=== PATIENT | female | born 1980 | race Caucasian/White ===

== ENCOUNTER 2022-04-27 09:21 | Outpatient (CLI) | payer OTHER, SELFPAY ==
--- NOTE | 2022-04-27 09:30 | ECG_ITS ---
Measurements Intervals [place] Rate: 78 P: 18 DC: 136 QRS: 12 QRSD: 97 T: 15 QT: 378 QTc: 432 Interpretive Statements SINUS RHYTHM BASELINE ARTIFACT POSSIBLE RIGHT VENTRICULAR CONDUCTION DELAY [RSR (QR) IN V1/V2] BORDERLINE ECG NO PREVIOUS ECG AVAILABLE FOR COMPARISON Electronically Signed On 04-27-2022 14:13:57 CDT by Josafat Murdock M.D.
== END 2022-04-27 09:22 | disposition home or self-care (01) ==
PROVIDERS: Visit Provider Surgery Plastic and Reconstructive Surgery
DX: Z01.818 Encounter for other preprocedural examination (principal); I10 Essential (primary) hypertension
CPT/HCPCS: 93005

== ENCOUNTER 2022-04-28 00:11 | Day surgery (SDC) | payer OTHER, SELFPAY ==
[2022-04-21 09:32] VITALS: BMI 28.3
--- NOTE | 2022-04-21 09:40 | PC.NURSE ---
Report to the Outpatient Waiting Room, entrance under the green pavilion located off [facility], at time on date . OR Time: . - You and your visitor will be asked a series of questions to screen for COVID 19 for your protection. - Only one visitor is allowed at this time. - The patient visitor is requested to leave or wait in car when not with patient. - A mask is required within the hospital. Patients may have clear liquids (water, carbonated beverages, clear teas, apple juice) until 3 hours prior to surgery with a maximum of 20 ounces. - No food from midnight until time of surgery - Infants may have breast milk until 4 hours before surgery, infant formula 6 hours prior to surgery. - Children will be allowed to drink immediately following surgery. If applicable, please bring a bottle or sippy cup to assist with drinking. Juice, water, soda, and popsicles are readily available. For infants on formula, please bring formula the day of surgery. Pacifiers are allowed. Take the following medications with a SIP of water the morning of surgery: Medications to discontinue per physician Date to take last dose Please no make-up, nail khmer, hairspray, perfume, deodorant, or body powder the day of surgery. No jewelry (including any body piercings) or valuables the day of surgery, leave them at home. Please take a shower or bath the night before, or the morning of, surgery with an antibacterial soap. Wear comfortable, loose fitting clothing. Children are encouraged to wear pajamas. - Jewelry must be removed prior to entering the operating room. Rings and piercings that are not removed may be cut off. - The hospital will not accept responsibility for valuables. - Please leave all valuables, including medications, at home the day of surgery. If you are going home after surgery, a licensed test driver must drive you home. - NO public transportation without another adult. - We recommend that an adult stay with you for 24 hours following discharge. - We also recommend that you do not drive, make important decision, drink alcoholic beverages, or take any drugs that were not prescribed by your health care provider for at least 24 hours after your discharge time. For Pediatric surgeries, we recommend two adults accompany the child home (only one inside the building at this time). Follow any additional instructions given to you from your surgeon. If you or anyone in your household have experienced Covid symptoms in the past week, please notify your surgeon or the nurse liaison at the phone number below for possible testing. Telephone instructions given to and asked if any additional questions and then verbalized understanding. Patient advised to call surgeon office or pre surgery nurse liaison [phone] if any additional questions.
--- NOTE | 2022-04-21 09:41 | PC.NURSE ---
Report to the Outpatient Waiting Room, entrance under the green pavilion located off [facility], at time _0630_ on date _[id number]_. OR Time: _0830_. - You and your visitor will be asked a series of questions to screen for COVID 19 for your protection. - Only one visitor is allowed at this time. - The patient visitor is requested to leave or wait in car when not with patient. - A mask is required within the hospital. Patients may have clear liquids (water, carbonated beverages, clear teas, apple juice) until 3 hours prior to surgery with a maximum of 20 ounces. - No food from midnight until time of surgery Take the following medications with a SIP of water the morning of surgery: ____Metoprolol Medications to discontinue per physician Date to take last dose Please no make-up, nail malay, hairspray, perfume, deodorant, or body powder the day of surgery. No jewelry (including any body piercings) or valuables the day of surgery, leave them at home. Please take a shower or bath the night before, or the morning of, surgery with an antibacterial soap. Wear comfortable, loose fitting clothing. - Jewelry must be removed prior to entering the operating room. Rings and piercings that are not removed may be cut off. - The hospital will not accept responsibility for valuables. - Please leave all valuables, including medications, at home the day of surgery. If you are going home after surgery, a licensed intermodal truck driver must drive you home. - NO public transportation without another adult. - We recommend that an adult stay with you for 24 hours following discharge. - We also recommend that you do not drive, make important decision, drink alcoholic beverages, or take any drugs that were not prescribed by your health care provider for at least 24 hours after your discharge time. Follow any additional instructions given to you from your surgeon. If you or anyone in your household have experienced Covid symptoms in the past week, please notify your surgeon or the nurse liaison at the phone number below for possible testing. Telephone instructions given to _Patient___and asked if any additional questions and then verbalized understanding. Patient advised to call surgeon office or pre surgery nurse liaison [phone] if any additional questions.
--- NOTE | 2022-04-27 13:25 | WPDANESEPPF ---
Anes - Initial Pre Proc Eval Procedure: Operation Date: 04/28/22 08:30 Proposed Procedures p Abdominoplasty - Mendez Soto MD s Abdominal Liposuction - Mendez Soto MD Date/Time: 04/27/22 13:25 Surgeon: Mendez Soto MD Pre Op Diagnosis: Skin Laxity Patient Data Age: 41 Gender: F Height: 1.63 m Weight: 75 kg Allergies Allergy/AdvReac Type Severity Reaction Status Date / Time No Known Allergies Allergy Unverified 04/21/22 09:29 Home Medications Medication Instructions Recorded Confirmed Type cetirizine 10 mg PO DAILY 04/10/22 04/21/22 History losartan PO 04/10/22 History montelukast 10 mg PO QAM 04/10/22 04/21/22 History docusate sodium 100 mg capsule 100 mg PO DAILY #14 caps 04/16/22 Rx (Colace) ondansetron 4 mg disintegrating 4 mg PO Q8H #21 tabs 04/16/22 Rx tablet carisoprodol 350 mg tablet (Soma) 350 mg PO TID PRN muscle pain #21 04/17/22 04/17/22 Rx tabs diazepam 5 mg tablet (Valium) 5 mg PO TID PRN anxiety #7 tabs 04/17/22 04/17/22 Rx oxycodone-acetaminophen 5 mg-325 1 tablet PO Q6H PRN pain #30 tabs 04/17/22 04/17/22 Rx mg tablet (Percocet) lorazepam 0.5 mg tablet 0.5 mg PO TID PRN Anxiety 04/21/22 04/21/22 History metoprolol tartrate 25 mg tablet 25 mg PO DAILY 04/21/22 04/21/22 History pantoprazole 40 mg tablet,delayed 40 mg PO QAM 04/21/22 04/21/22 History release sertraline 25 mg tablet 25 mg PO QAM 04/21/22 04/21/22 History Patient hx anesthesia problems: post op nausea/vomiting Family hx anesthesia problems: none Results Review: All pre-operative results and documents have been reviewed as part of the pre-operative evaluation. [facility] Past Medical History Medical History (Updated 04/27/22 @ 13:27 by Carlos Adams DO) Anxiety Asthma Hypertension PONV (postoperative nausea and vomiting) Surgical History Surgical History (Updated 04/27/22 @ 13:27 by Carlos Adams DO) History of cholecystectomy Family History Family History Father Acute myocardial infarction Social History Social History Smoking status: Never smoker Alcohol intake: current Living arrangements: with family Spiritual care concerns: No Anes - Eval Final PreProcedure Day of Procedure 04/27/22 13:25 Patient weight: overweight Heart: regular rate and rhythm Lungs: clear to auscultation Airway: Mallampati scale class II Neurological: alert and oriented Last oral intake: >/= 8 hours ASA classification: II Emergent: no Anesthetic plan: proceed Anesthesia type and monitoring: general ETT and standard monitoring Results Review: All pre-operative results and documents have been reviewed as part of the pre-operative evaluation. Informed Consent: The patient's anesthetic plan and its attendant risks and benefits were discussed with the patient/family/POA. Questions were solicited and answers provided to the satisfaction of the patient/family/POA.
[2022-04-28] VITALS (13 sets, daily range): BP systolic 104–130; BP diastolic 59–78; PULSE 87–112; RESP 15–19; TEMP 36.1–36.9; O2SAT 97–100
--- NOTE | 2022-04-28 06:00 | W.PM.PROC2 ---
Procedure Note - Detailed Date of Procedure 04/28/22 Pre-op Diagnosis Skin Laxity Post-op Diagnosis Same Procedure Performed Progressive tension abdominoplasty with suction lipectomy Surgeon Mendez Soto MD Anesthesia General Findings Tissue removed: 2872 grams Lipoaspirate: 3350 cc Description of Procedure They are here today for abdominoplasty. Previously and again today the risks, benefits, alternatives were discussed in extensive detail. I wanted them to be very realistic about the risks involved as well as expectations. We discussed aftercare and what to monitor for. I was very upfront about the risks of wound breakdown leading to loss of skin, open wounds, and need for additional procedures with permanent abdominal deformity. We discussed DVT/PE risks and management. Made sure answered all of their questions to their satisfaction today and consent was obtained. She was marked in the preoperative holding area with their verification. The patient was taken to the operating room placed supine on the operating table. Anesthesia was provided by anesthesiology. A Rodriguez catheter was started. They were prepped and draped in a standard 360 degree sterile fashion. A surgical time-out was taken. I placed the patient in a flexed position to verify the upper and lower markings would reach. I then placed supine. A thorough abdominal examination was completed. Stab incisions were made and tumescent solution infiltrated. A liposuction basket cannula was utilized to complete suction lipectomy based on S.A.F.E. technique with a 5mm basket cannula. Care was taken to protect vascularity of the skin flap. This was completed supine as well as in bilateral lateral decubitus positions. Care was taken to protect the patient in each of these positions and while turning. Lipoaspirate was based on pre-operative planning, intraoperative observation, and rolling pinch test. A 10 blade was used to make the upper incision. I continued dissection down to the level of fascia. Elevated just what was necessary for repair of the diastasis. I then again flexed the bed to verify the upper skin flap would reach the lower markings without tension. Once verified I placed her supine once again and a 10 blade used to make the lower incision. I elevated up to level the umbilicus and left the umbilicus intact on a well-vascularized stalk. The intervening tissue was removed. A 2 mm blunt cannula with 0.5% bupivicaine was injected deep to the fascia bilaterally. I plicated the diastasis recti using 0 PDO stratafix barbed suture. This was in 2 separate layers using 2 separate sutures as well. I repaired around the umbilicus leaving plenty of room for well-vascularized stalk of the umbilicus with 2-0 PDS. I also repaired lateral to the rectus using two layers of 0 PDO stratafix. The patient was flexed and starting from superior to inferior began plication using 2-0 Vicryl to obliterate all space in a standard progressive tension fashion. At the umbilicus I marked out the location of the skin and inset this with 3-0 Monocryl and 4-0 Vicryl. I continued the remainder of the plication using 2-0 Vicryl until I reached my lower planned scar line. I trimmed any excess skin of the upper flap making sure this was a tension-free closure. I then approximated using a 3 point suture with 2-0 Vicryl followed by 3-0 stratafix ,running subcuticular 4-0 Monocryl, and tissue glue. Fluffs and an abdominal binder were placed. The patient was transferred to the bed in a flexed position. Awoken and taken to the PACU without difficulty. All instrument and sponge counts were correct at the end of the case. Estimated Blood Loss 100 Drains No Packing No Pathology None sent Complications No immediate complications Condition Stable Disposition PACU
--- NOTE | 2022-04-28 06:59 | WPDHPUPDATE1 ---
History and Physical Update Update Date/Time: 04/28/22 06:59 History and Physical has been reviewed, including an updated exam of the patient. There are NO changes in the patient's condition. Risks, benefits, and alternatives have been discussed and questions answered. Patient agrees to proceed with procedure.
[2022-04-28] MEDS: LACTATED RINGERS 1,000 ML 30 ML IV CONT ×2 (07:00→12:54)
[2022-04-28 07:26] LABS: Urine Cotinine NEGATIVE
[2022-04-28] MEDS: ceFAZolin 2 GM/D5W 50 ML 2 GM/50 ML BAG IVPB (08:34)
[2022-04-28] MEDS: TRANEXAMIC ACID 1,000MG/ISO100 1,000 MG/100 ML BAG 200 MG IVPB (08:45)
[2022-04-28] MEDS: LACTATED RINGERS IRRIG 1,000 ML, LIDOCAINE HCL 1% LOCAL INJ 50 ML, EPINEPHrine HCL INJ ... INFILTRATE ×4 (08:58→12:25)
[2022-04-28] MEDS: BUPIVACAINE HCL 0.25% PF 30 ML VIAL INFILTRATE (10:08)
[2022-04-28] MEDS: LIDO 1%/EPINEPHRINE 1:100,000 50 ML VIAL INFILTRATE (10:09)
[2022-04-28] MEDS: SCOPOLAMINE 1.5 MG PATCH TRANSDERM (12:54)
[2022-04-28] MEDS: fentaNYL CITRATE INJ (*CRX) 100 MCG/2 ML VIAL 25 MCG IV PUSH (13:45)
[2022-04-28] MEDS: LACTATED RINGERS 1,000 ML 125 ML IV CONT (14:23)
[2022-04-28] MEDS: ONDANSETRON INJ 4 MG/2 ML VIAL IV PUSH (14:24)
[2022-04-28] MEDS: MORPHINE SULFATE (*CRX) 2 MG/ML INJ IV PUSH (14:28)
[2022-04-28] MEDS: carisoprodoL (*CRX) 350 MG TABLET PO (18:10)
[2022-04-28] MEDS: DOCUSATE SODIUM 100 MG CAPSULE PO (20:34)
[2022-04-28] MEDS: oxyCODONE/ACETAMINOPHEN (*CRX) 5-325 MG TABLET PO (20:35)
[2022-04-28] MEDS: ENOXAPARIN 40 MG/0.4 ML SYRINGE SUB-Q (20:38)
[2022-04-29 00:25] VITALS: BP 122/82; PULSE 91; RESP 18; TEMP 36.9; O2SAT 98
[2022-04-29] MEDS: carisoprodoL (*CRX) 350 MG TABLET PO ×3 (02:07→13:55)
[2022-04-29] MEDS: oxyCODONE/ACETAMINOPHEN (*CRX) 5-325 MG TABLET PO ×3 (02:21→13:54)
[2022-04-29] MEDS: LACTATED RINGERS 1,000 ML 125 ML IV CONT (04:02)
[2022-04-29 04:30] VITALS: BP 124/77; PULSE 92; RESP 16; TEMP 36.8; O2SAT 98
--- NOTE | 2022-04-29 06:45 | WPDPN ---
Progress Note: A&P Assessment and Plan (1) Skin laxity: Code(s): L57.4 - Cutis laxa senilis Status: Acute Assessment and Plan: Overall doing well after progressive tension abdominoplasty with suction lipectomy. Will monitor the inferior most portion of the flap otherwise looks very good. Will plan for discharge home and I will see her back. Today we had a lengthy open-ended conversation about her care. What monitor for. Activity limitations. Again this was lengthy going into great detail of what she can and cannot do. What monitor for. she knows what is an emergency and went dial 911. She understands otherwise she can call with any questions or concerns at any time. We will see her back. (2) PONV (postoperative nausea and vomiting): Code(s): R11.2 - Nausea with vomiting, unspecified; Z98.890 - Other specified postprocedural states Status: Acute Assessment and Plan: Improving, monitor. (3) History of neck surgery: Code(s): Z98.890 - Other specified postprocedural states Status: Acute (4) History of back surgery: Code(s): Z98.890 - Other specified postprocedural states Status: Acute (5) Exposure to phentermine: Code(s): T50.5X5A - Adverse effect of appetite depressants, initial encounter Status: Acute Assessment and Plan: She understands to avoid this during her postoperative recovery. (6) Gastritis: Code(s): K29.70 - Gastritis, unspecified, without bleeding Status: Acute Assessment and Plan: Currently nausea only. No evidence of gastritis. She will monitor. Continue medication Subjective Date/time seen: 04/29/22 06:15 Interval history: Overnight she has done well. No fevers or chills. Some nausea with no emesis. No shortness of breath. No chest pain. No calf tenderness. Review of Systems Review of Systems: All systems reviewed & are unremarkable except as noted in HPI and below Exam Narrative: Alert and oriented no obvious distress Respiratory labored Abdomen soft. No signs of infection. No hematoma. No seroma. The inferior central portion less than 4cm x 0.5cm there is sluggish capillary refill. Otherwise very good capillary refill throughout the abdominal flap. No calf tenderness. Negative Homans. Objective Data Vital Signs Vital Signs: Vital Signs - 24 hr 04/28/22 07:00 04/28/22 12:54 04/28/22 13:00 Temperature 36.9 C 36.1 C L Pulse Rate 89 112 H 94 Respiratory Rate 16 16 15 Blood Pressure 130/78 104/63 109/60 Pulse Oximetry 100 100 100 Oxygen Delivery Room Air Simple Face Mask Simple Face Mask Oxygen Flow Rate 10 10 04/28/22 13:15 04/28/22 13:30 04/28/22 13:45 Temperature Pulse Rate 107 H 100 98 Respiratory Rate 19 17 17 Blood Pressure 113/66 110/67 107/59 L Pulse Oximetry 100 98 97 Oxygen Delivery Simple Face Mask Room Air Room Air Oxygen Flow Rate 10 04/28/22 14:00 04/28/22 14:05 04/28/22 14:15 Temperature 36.5 C Pulse Rate 92 92 92 Respiratory Rate 15 15 16 Blood Pressure 105/71 110/65 Pulse Oximetry 98 98 97 Oxygen Delivery Room Air Room Air Oxygen Flow Rate 04/28/22 17:00 04/28/22 17:47 Temperature 36.6 C Pulse Rate 92 93 Respiratory Rate 16 16 Blood Pressure 107/70 Pulse Oximetry 97 99 Oxygen Delivery Room Air Oxygen Flow Rate Intake/Output Intake/Output: Intake & Output 04/26/22 04/27/22 04/28/22 04/29/22 23:59 23:59 23:59 23:59 Intake Total 1150 1000 Output Total 300 Balance 850 1000 Meds/Results Medications: Active Medications Generic Name Dose Route Start Last Admin Trade Name Freq PRN Reason Stop Dose Admin Carisoprodol 350 mg 04/28/22 18:00 04/29/22 02:07 Carisoprodol (*Crx) 350 Mg Tablet PO 350 mg Q6HR CHAI Administration Diazepam 5 mg 04/28/22 12:52 Diazepam (*Crx) 5 Mg Tablet PO TID PRN Anxiety Docusate Sodium 100 mg 04/28/22 21:00 04/28/22 20
--- NOTE | 2022-04-29 06:55 | P.DS_ITS ---
DS: Admitting Diagnosis Discharge Date 04/29/2022 Admitting Diagnosis skin laxity DS: Discharge Diagnosis Discharge Diagnosis (1) Skin laxity: Code(s): L57.4 - Cutis laxa senilis Status: Acute (2) PONV (postoperative nausea and vomiting): Code(s): R11.2 - Nausea with vomiting, unspecified; Z98.890 - Other specified postprocedural states Status: Acute (3) Exposure to phentermine: Code(s): T50.5X5A - Adverse effect of appetite depressants, initial encounter Status: Acute (4) History of neck surgery: Code(s): Z98.890 - Other specified postprocedural states Status: Acute (5) History of back surgery: Code(s): Z98.890 - Other specified postprocedural states Status: Acute (6) Gastritis: Code(s): K29.70 - Gastritis, unspecified, without bleeding Status: Acute DS: Summary Hospital Course Hospital Course: She underwent progressive tension abdominoplasty with suction lipectomy uneventfully. Postoperatively she has done well. She does have sluggish capillary refill just at the most inferior portion of the skin flap centrally. Otherwise healing very well. Will plan for discharge home. I will see her back. Time Spent with Patient Time attestation: Total time spent providing and/or coordinating discharge services: Exam Narrative: Alert and oriented no obvious distress Respiratory labored Abdomen soft. No signs of infection. No hematoma. No seroma. The inferior central portion less than 4cm x 0.5cm there is sluggish capillary refill. Otherwise very good capillary refill throughout the abdominal flap. No calf tenderness. Negative Homans. DS: Data Data Completed and Pending Labs on day of discharge: Labs from last 24 hours 04/28/22 06:50 Cotinine Negative Discharge Plan Discharge Patient Disposition: Home, Self-Care Discharge Instructions: POST OPERATIVE DISCHARGE INSTRUCTIONS MENDEZ SOTO M.D. [facility] [address] [place] [address] * No driving for 24 hours after anesthesia and while you are taking pain medication. * Take all prescribed medication as directed * Diet as tolerated. * No lifting or activity that raises blood pressure for 48 hours. * Regular walking / ambulation. * May shower 24 hours after surgery. Once you shower do not take pain medication before showering as the combination of medication and heat may cause you to feel dizzy or pass out. * No pools or tubs for 2 weeks. * Slowly stand up straight as tolerated. * No straining or lifting more than 20 pounds. * Call with any questions or concerns. * If no bowel movement within 24 hours contact our office. * Dressing Care: Continue abdominal binder / foam 23 hours per day. If you have any questions or concerns, please call the office . If it is after hours you will be directed to the saloon keeper exchange. Shortness of breath, chest pain, or other medical emergency dial 911 / proceed to the Emergency Room. Stand Alone Forms: General Discharge Instructions Follow-up/Referrals: Mendez Soto MD [Physician] - 1 Week Discharge Medications: Continued ondansetron 4 mg tablet,disintegrating
--- NOTE | 2022-04-29 06:55 | PM.DS ---
DS: Admitting Diagnosis Discharge Date 04/29/2022 Admitting Diagnosis skin laxity DS: Discharge Diagnosis Discharge Diagnosis (1) Skin laxity: Code(s): L57.4 - Cutis laxa senilis Status: Acute (2) PONV (postoperative nausea and vomiting): Code(s): R11.2 - Nausea with vomiting, unspecified; Z98.890 - Other specified postprocedural states Status: Acute (3) Exposure to phentermine: Code(s): T50.5X5A - Adverse effect of appetite depressants, initial encounter Status: Acute (4) History of neck surgery: Code(s): Z98.890 - Other specified postprocedural states Status: Acute (5) History of back surgery: Code(s): Z98.890 - Other specified postprocedural states Status: Acute (6) Gastritis: Code(s): K29.70 - Gastritis, unspecified, without bleeding Status: Acute DS: Summary Hospital Course Hospital Course: She underwent progressive tension abdominoplasty with suction lipectomy uneventfully. Postoperatively she has done well. She does have sluggish capillary refill just at the most inferior portion of the skin flap centrally. Otherwise healing very well. Will plan for discharge home. I will see her back. Time Spent with Patient Time attestation: Total time spent providing and/or coordinating discharge services: Exam Narrative: Alert and oriented no obvious distress Respiratory labored Abdomen soft. No signs of infection. No hematoma. No seroma. The inferior central portion less than 4cm x 0.5cm there is sluggish capillary refill. Otherwise very good capillary refill throughout the abdominal flap. No calf tenderness. Negative Homans. DS: Data Data Completed and Pending Labs on day of discharge: Labs from last 24 hours 04/28/22 06:50 Cotinine Negative Discharge Plan Discharge Patient Disposition: Home, Self-Care Discharge Instructions: POST OPERATIVE DISCHARGE INSTRUCTIONS MENDEZ SOTO M.D. [facility] [address] [place] [address] No driving for 24 hours after anesthesia and while you are taking pain medication. Take all prescribed medication as directed Diet as tolerated. No lifting or activity that raises blood pressure for 48 hours. Regular walking / ambulation. May shower 24 hours after surgery. Once you shower do not take pain medication before showering as the combination of medication and heat may cause you to feel dizzy or pass out. No pools or tubs for 2 weeks. Slowly stand up straight as tolerated. No straining or lifting more than 20 pounds. Call with any questions or concerns. If no bowel movement within 24 hours contact our office. Dressing Care: Continue abdominal binder / foam 23 hours per day. If you have any questions or concerns, please call the office . If it is after hours you will be directed to the education site manager exchange. Shortness of breath, chest pain, or other medical emergency dial 911 / proceed to the Emergency Room. Stand Alone Forms: General Discharge Instructions Follow-up/Referrals: Mendez Soto MD [Physician] - 1 Week Discharge Medications: Continued ondansetron 4 mg tablet,disintegrating 4 mg PO Q8H Qty: 21 0RF docusate sodium [Colace] 100 mg capsule 100 mg PO DAILY Qty: 14 0RF diazepam [Valium] 5 mg tablet 5 mg PO TID PRN (Reason: anxiety) Qty: 7 0RF carisoprodol [Soma] 350 mg tablet 350 mg PO TID PRN (Reason: muscle pain) Qty: 21 0RF oxycodone-acetaminophen [Percocet] 5-325 mg tablet 1 tablet PO Q6H PRN (Reason: pain) Qty: 30 0RF losartan PO montelukast 10 mg PO QAM cetirizine 10 mg PO DAILY pantoprazole 40 mg Tablet,Delayed Release (Dr/Ec) 40 mg PO QAM metoprolol tartrate 25 mg tablet 25 mg PO DAILY sertraline 25 mg tablet 25 mg PO QAM Held lorazepam 0.5 mg tablet 0.5 mg PO TID PRN
[2022-04-29] MEDS: ONDANSETRON INJ 4 MG/2 ML VIAL IV PUSH (07:15)
[2022-04-29 07:55] VITALS: BP 115/80; PULSE 81; RESP 16; TEMP 37.2; O2SAT 99
[2022-04-29] MEDS: DOCUSATE SODIUM 100 MG CAPSULE PO (08:20)
[2022-04-29] MEDS: PANTOPRAZOLE 40 MG TABLET PO (08:21)
[2022-04-29] MEDS: SERTRALINE HCL 25 MG TABLET PO (08:21)
[2022-04-29 08:25] VITALS: PULSE 81
[2022-04-29 08:30] VITALS: PULSE 81; RESP 16; O2SAT 98
--- NOTE | 2022-04-29 12:48 | WPDANESPN ---
Anes - Prog Note Post-Op Date/Time: 04/29/22 12:48 Cardiovascular status: normal Respiratory status: normal Airway patency: baseline Mental status: baseline Post-Op hydration status: normal Vital Signs: Last Vital Signs Temp 99.0 F 04/29/22 07:55 Pulse 81 04/29/22 08:30 Resp 16 04/29/22 08:30 BP 115/80 04/29/22 07:55 Pulse Ox 98 04/29/22 08:30 O2 Del Method Room Air 04/29/22 08:30 O2 Flow Rate 10 04/28/22 13:15 Pain Score (VAS): 10/06 I/O: Intake & Output 04/28/22 04/29/22 04/29/22 23:59 07:59 15:59 Intake Total 0 1000 647 Output Total 300 400 475 Balance -300 600 172 Patient Feedback: Patient satisfied with anesthetic care.
--- NOTE | 2022-04-29 13:52 | PC.NURSE ---
Patient states that she did not take Singulair and Clariton when RN gave to her; pt states she took her own meds. RN wasted drugs.
== END 2022-04-29 16:05 | disposition home or self-care (01) ==
LOC: ANHSURGERY 06:16 → ANHOB2 14:17
PROVIDERS: Visit Provider Surgery Plastic and Reconstructive Surgery
PROC: (CPT 15877; principal; 2022-04-28 08:30)
PROC: (CPT 15877; 2022-04-28 08:30)
DX: Z41.1 Encounter for cosmetic surgery (principal); L57.4 Cutis laxa senilis; R11.2 Nausea with vomiting, unspecified; K29.70 Gastritis, unspecified, without bleeding; I10 Essential (primary) hypertension; J45.909 Unspecified asthma, uncomplicated; F41.9 Anxiety disorder, unspecified; Z79.899 Other long term (current) drug therapy
CPT/HCPCS: 15877; 15830; 15847; 80307; 99199; A9270; J0171; J0330; J0690; J1100; J1170; J1650; J2250; J2270; J2405; J2704; J3010; J7120